=== PATIENT | male | born 1985 | race African-American/Black ===

== ENCOUNTER → 2024-12-03 | Outpatient (CLI) | payer BC, MEDICAID ==
[~2024-12-03] MED LIST: ARIP20TA4 PO; ATOR40TA52 PO; BACL10TA PO; CLOP75TA28 PO; FLUO40CA2 PO; GLIP5TAB21 PO; INSUINJ37 SC; MELO15TA29 PO; METF-370 PO; METH4TAB9 PO; RIZA10TA12 PO; TIRZ2.5I SC; TOPI25CA5 PO; TRAZ-228 PO
[2024-12-03 11:35] LABS: Hematocrit 43.9 % (41.0-53.0); Hemoglobin 14.1 g/dL (13.5-17.5); Mean Corpuscular Hemoglobin 27.0 pg (28.0-32.0); Mean Corpuscular Volume 84.1 fL (80.0-100.0); Nucleated Red Blood Cells % 0.0 %
[2024-12-03 11:46] LABS: INR 0.94 (0.9-1.15); Partial Thromboplastin Time 27.5 SEC (24.5-34.5); Prothrombin Time 10.0 sec (9.3-11.8)
[2024-12-03 12:10] LABS: Alkaline Phosphatase 77 U/L (46-116); Anion Gap 11 (5-15); Calcium 9.2 mg/dL (8.7-10.4); Carbon Dioxide 27 mmol/L (20-31); Chloride 106 mmol/L (98-107); Potassium 4.1 mmol/L (3.5-5.1); Sodium 144 mmol/L (136-145)
[2024-12-03 12:11] LABS: Total Protein 7.6 g/dL (5.7-8.2)
[2024-12-03 12:12] LABS: Albumin 4.4 g/dL (3.2-4.8); Bilirubin, Total 0.8 mg/dL (0.2-1.0)
[2024-12-03 12:34] LABS: Hepatitis B Surface Antigen Negative (Negative); Hepatitis C Antibody Negative (Negative)
[2024-12-03 14:45] LABS: Alanine Aminotransferase 62 U/L (7-40); BUN/Creatinine Ratio 7.4 (10.0-20.0); Blood Urea Nitrogen 7 mg/dL (9-23); Glucose 115 mg/dL (74-106)
[2024-12-04 10:07] LABS: Anti-Nuclear Antibody Direct Negative (Negative); Sjogren's Anti-SS-A Antibody <0.2 AI (0.0-0.9); Sjogren's Anti-SS-B Antibody <0.2 AI (0.0-0.9)
== END | disposition home or self-care (01) ==
LOC: LAB 09:39
PROVIDERS: ATTEND Psychiatry & Neurology Neurology
DX: G35.D Multiple sclerosis, unspecified (principal); Z79.899 Other long term (current) drug therapy
CPT/HCPCS: 36415; 80053; 82164; 82306; 82390; 82607; 82746; 84311; 84436; 84443; 85025; 85610; 85652; 85730; 86038; 86141; 86235; 86703; 86803; 87340

== ENCOUNTER 2024-12-05 07:04 | Outpatient (CLI) | payer BC, MEDICAID ==
[~2024-12-05] VITALS: Ht 182.9 cm; Wt 172.8 kg
[2024-12-05 10:00] VITALS: BP 128/81; PULSE 91; RESP 11; O2SAT 99
[2024-12-05 10:30] VITALS: BP 145/88; PULSE 88; RESP 12; O2SAT 98
--- NOTE | 2024-12-05 11:13 | DVH ---
XY LUMBAR PUNCTURE, HISTORY: LUMBAR PUNCTURE COMPARISON: None PROCEDURE: After obtaining written informed consent, the patient was placed left lateral decubitus on the interventional table. The patient's identity and the procedure were confirmed by the timeout pro cess. Under fluoroscopy, a midline approach to the L2-3 interlaminar space was selected and the overlying s kin anesthetized with several mL of 1% lidocaine. A 22G spinal needle was advanced under fluoroscopic vision into the spine however the needle was unable to reach the thecal sac. Fluoro Time: 2.4 minutes FINDINGS: Stored fluoroscopic images show the needle positioned with its tip not able to reach the th ecal sac. IMPRESSION: Unsuccessful lumbar puncture for CSF analysis, due to the needle too short to reach the thecal sac. A 5 inch spinal needle was the longest available in the facility. Recommend special order longer spina l needle for lumbar puncture.
== END 2024-12-05 17:00 | disposition home or self-care (01) ==
LOC: CATH 07:04
PROVIDERS: ATTEND Radiology Diagnostic Radiology
DX: G35.D Multiple sclerosis, unspecified (principal); I10 Essential (primary) hypertension; F32.A Depression, unspecified; E11.9 Type 2 diabetes mellitus without complications; G43.909 Migraine, unspecified, not intractable, without status migrainosus; Z86.73 Personal history of transient ischemic attack (TIA), and cerebral infarction without residual deficits; Z79.899 Other long term (current) drug therapy; Z98.890 Other specified postprocedural states
CPT/HCPCS: 62272; 99152

== ENCOUNTER 2024-12-07 08:37 | Emergency (ER) | payer BC, MEDICAID ==
[~2024-12-07] VITALS: Ht 182.9 cm; Wt 176.0 kg
[2024-12-07 08:38] VITALS: BP 187/85; PULSE 72; RESP 18; TEMP 97.6; O2SAT 96
--- NOTE | 2024-12-07 09:02 | ED.PDOC ---
Musculoskeletal HPI Comments This is a 38-year-old male, with a PMHx of Multiple Sclerosis (MS), Crohns Disease, CVA, and DM, who presents to the ED with a chief complaint of bilateral leg swelling for X3 days. Patient states this has happened before, with diagnosed MS, where he took a water pill to help with swelling. Patient reports he was taken off water pills in September. Patient has no further complaints at this time and otherwise denies further associated symptoms of dizziness, weakness, SOB, chest pain, headache, or fever. Chief Complaint: Lower Extremity Time Seen by MD: 09:52 Reviewed Notes: Nurses Notes, Medications, Allergies Allergies: Coded Allergies: Aspirin (Verified Allergy, Unknown, Swelling, Hives, 12/03/24) Uncoded Allergies: Green Beans (Allergy, Unknown, Throat and Tongue swelling, 12/03/24) Home Meds Reported Medications Baclofen (Baclofen) 10 Mg Tab, 10 MG PO TID PRN for MUSCLE SPASMS, MG 12/03/24 Trazodone Hcl (Trazodone Hcl) 100 Mg Tab, 100 MG PO HS for INSOMNIA, MG 12/03/24 Aripiprazole (Abilify) 20 Mg Tab, 10 MG PO DAILY for PSYCHOSIS, TAB 12/03/24 Tirzepatide (Mounjaro) 2.5 Mg/0.5 Ml Inj, 2.5 MG SC QWEEKLY for diabetes/weight loss, INJ 12/03/24 Insulin Glargine (Lantus Solostar) 100 Unit/Ml Inj, 30 UNIT SC DAILY for DIABE LEXIE, INJ 12/03/24 Topiramate (Topiramate) 25 Mg Cap, 25 MG PO DAILY for MIGRAINE HEADACHES for 30 Days, MG 12/03/24 Metformin Hydrochloride (Metformin Hcl) 500 Mg Tab, 500 MG PO BID for DIABETES for 30 Days, MG 12/03/24 Glipizide (Glipizide) 5 Mg Tab, 5 MG PO BID for DIABETES, MG 12/03/24 Fluoxetine HCl (Fluoxetine Hydrochloride) 40 Mg Cap, 40 MG PO DAILY, CAP 12/03/24 Atorvastatin Calcium (ATORVASTATIN CALCIUM) 40 Mg Tab, 1 TAB PO DAILY for HIGH CHOLESTEROL, #30 TAB 5 Refills 12/03/24 Meloxicam (Meloxicam) 15 Mg Tab, 1 TAB PO TIDP PRN for PAIN SCALE 1 THRU 6, #30 TAB 2 Refills 12/03/24 Rizatriptan Benzoate (Maxalt) 10 Mg Tab, 10 MG PO TIDP PRN for migraine headache, TAB 12/03/24 Clopidogrel Bisulfate (Plavix) 75 Mg Tab, 1 TAB PO DAILY, #90 TAB 1 Refill 12/03/24 Methylprednisolone (Methylprednisolone) 4 Mg Tab, 24 MG PO DAILY for Multiple Sclerosis, MG 12/03/24 Information Source: Patient Mode of Arrival: Ambulatory Location: Bilateral Extremity Location: Leg Timing: Days Severity: Moderate Onset of Symptoms: Spontaneous Symptoms: Swelling, Pain Associated signs and symptoms: Swelling Past Medical History PAST MEDICAL HISTORY: CVA, DM Past Medical History (Other): Multiple Sclerosis (MS), Crohns Disease Surgical History: Denies all surgeries Family History Family History: Reviewed,noncontributory to illness, No family hx of Cancer, No family hx of DM, No family hx of Heart darrel, No family hx of HTN, No family hx ofKidney darrel, No family hx of Liver darrel, No family hx of Lung darrel, No family hx of Stroke Social History Smoker: Non-Smoker Alcohol: Denies ETOH Use Drugs: Denies Drug Use Lives In: Home Constitutional: denies: chills, diaphoresis, fatigue, fever, malaise, sweats, weakness, others EENTM: denies: blurred vision, double vision, ear bleeding, ear discharge, ear drainage, ear pain, ear ringing, eye pain, eye redness, hearing loss, mouth pain, mouth swelling, nasal discharge, nose bleeding, nose congestion, nose pain, photophobia, tearing, throat pain, throat swelling, voice changes, others Respiratory: denies: cough, hemoptysis, orthopnea, SOB at rest, shortness of breath, SOB with excertion, stridor, wheezing, others Cardiovascular: denies: chest pain, dizzy spells, diaphoresis, Dyspnea on exertion, edema, irregular heart beat, left arm pain, lightheadedness, palpitations, PND, syncope, others Gastrointestinal: denies: abdomen distended, abdominal pain, blood streaked bowels, constipated, diarrhea, dysphagia, difficulty swallowing, hematemesis, melena, nausea, poor appetite, poor fluid intake, rectal bleeding, rectal pain, vomiting, others Genitourinary: denies: burning, dysuria, flank pain, frequency, hematuria, incontinence, penile discharge, penile sore, pain, testicle pain, testicle swelling, urgency, others Neurological: denies: dizziness, fainting, headache, left sided numbness, left sided weakness, numbness, paresthesia, pre-existing deficit, right sided numbness, right sided weakness, seizure, speech problems, tingling, tremors, weakness, others Musculoskeletal: reports: joint swelling; denies: back pain, gout, joint pain, muscle pain, muscle stiffness, neck pain, others Integumetry: denies: bruises, change in color, change in hair/nails, dryness, laceration, lesions, lumps, rash, wounds, others Allergic/Immunocompromised: denies: Difficulty Healing, Frequent Infections, Hives, Itching, others Hematologic/Lymphatic: denies: anemia, blood clots, easy bleeding, easy bruising, swollen glands, others Endocrine: denies: excessive hunger, excessive sweating, excessive thirst, excessive urination, flushing, intolerance to cold, intolerance to heat, unexplained weight gain, unexplained weight loss, others Psychiatric: denies: anxiety, bipolar disorder, depression, hopeless, panic disorder, schizophrenia, sleepless, suicidal, others All Other Systems: Reviewed and Negative Physical Exam General Appearance: Moderate Distress HEENT: Normal ENT Inspection, Pharynx Normal, TMs Normal Neck: Full Range of Motion, Non-Tender, Normal, Normal Inspection Respiratory: Chest Non-Tender, Lungs Clear, No Accessory Muscle Use, No Respira tory Distress, Normal Breath Sounds Cardiovascular: No Edema, No JVD, No Murmur, No Gallop, Normal Peripheral Pulses, Regular Rate/Rhythm Breast Exam: Deferred Gastrointestinal: No Organomegaly, Non Tender, No Pulsatile Mass, Normal Bowel Sounds, Soft Genitalia: Deferred Pelvic: Deferred Rectal: Deferred Extremities: Swelling (Bilateral lower extremity) Musculoskeletal : Apperance: Normal Neurologic: Alert, 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 Was a procedure done?: No Differential Diagnosis EXT Differential Diagnosis: Cellulitis, Fracture, Sprain, Arthritis X-Ray, Labs, Meds, VS Vital Signs Date Time Temp Pulse Resp B/P (MAP) Pulse Ox O2 Delivery O2 Flow Rate FiO2 12/07/24 08:38 97.6 72 18 187/85 96 97.6 Patient alert. Vitals stable. Came in because of leg swelling. Answering all questions. Ambulating. Patient has not been taking his Lasix. Saturation pristine on room air. Blood pressure elevated. Explained to the patient. Continue monitoring. Time of 1ST Reevaluation: 10:40 Reevaluation 1ST: Unchanged Patient Education/Counseling: Diagnosis, Treatment Family Education/Counseling: No Family Present Departure 1 Departure Time of Disposition: 17:21 Impression: Primary Impression: CHF (congestive heart failure) Qualified Codes: I50.43 - Acute on chronic combined systolic (congestive) and diastolic (congestive) heart failure Additional Impression: Hypertensive urgency Disposition: ADMITTED INPATIENT Admit to: Med Surg Condition: Guarded Critical Care Note Critical Care Time?: No Stability Stability form required: No Heart Score Heart Score: Heart Score Response (Comments) Value History N/A 0 EKG N/A 0 Age N/A 0 Risk Factors N/A 0 Troponin N/A 0 Total 0 I personally scribed for KIRSTIE RICARDO MD ([email or web address]) on 12/07/24 at 09:02. Electronically submitted by Jolynn Tirado ([email or web address]). I personally scribed for KIRSTIE RICARDO MD ([email or web address]) on 12/07/24 at 10:10. Electronically submitted by Jolynn Tirado ([email or web address]). KIRSTIE RICARDO MD Dec 07, 2024 09:02
== END 2024-12-07 10:06 | disposition left against medical advice (07) ==
LOC: ER 08:37
DX: I50.9 Heart failure, unspecified (principal); I16.0 Hypertensive urgency; E11.9 Type 2 diabetes mellitus without complications; Z79.899 Other long term (current) drug therapy; Z86.73 Personal history of transient ischemic attack (TIA), and cerebral infarction without residual deficits; Z79.84 Long term (current) use of oral hypoglycemic drugs; Z79.4 Long term (current) use of insulin; Z79.02 Long term (current) use of antithrombotics/antiplatelets; Z88.6 Allergy status to analgesic agent; Z79.85 Long-term (current) use of injectable non-insulin antidiabetic drugs; Z79.52 Long term (current) use of systemic steroids

== ENCOUNTER 2024-12-13 14:34 | Emergency (ER) | payer BC, MEDICAID ==
[~2024-12-13] VITALS: Ht 185.4 cm; Wt 172.0 kg
[2024-12-13 14:35] VITALS: BP 126/95; PULSE 94; RESP 18; TEMP 97; O2SAT 98
--- NOTE | 2024-12-13 15:49 | ED.PDOC ---
Back pain HPI HPI Comments 38 y.o male presents to the ED for a chief complaint of body pain x 2 days. Patient reports recent diagnose of MS, states he is having a flare up and is here for a dexamethasone injection for pain control as he has an appointment with vascular doctor on 12/15/24. Patient was seen here a couple days ago given lower extremity swelling however had Lasix prescribed and states swelling has gone down. He is also being followed by his PCP and internal medicine team for DVT workup. He denies any nausea, vomiting, chest pain, SOB, fever, chills. Chief Complaint: Body Pain Time Seen by MD: 15:23 Reviewed Notes: Nurses Notes, Medications, Allergies Allergies: Coded Allergies: Aspirin (Verified Allergy, Unknown, Swelling, Hives, 12/03/24) Uncoded Allergies: BEE STING (Allergy, Unknown, 12/13/24) Green Beans (Allergy, Unknown, Throat and Tongue swelling, 12/03/24) Home Meds Reported Medications Baclofen (Baclofen) 10 Mg Tab, 10 MG PO TID PRN for MUSCLE SPASMS, MG 12/03/24 Trazodone Hcl (Trazodone Hcl) 100 Mg Tab, 100 MG PO HS for INSOMNIA, MG 12/03/24 Aripiprazole (Abilify) 20 Mg Tab, 10 MG PO DAILY for PSYCHOSIS, TAB 12/03/24 Tirzepatide (Mounjaro) 2.5 Mg/0.5 Ml Inj, 2.5 MG SC QWEEKLY for diabetes/weight loss, INJ 12/03/24 Insulin Glargine (Lantus Solostar) 100 Unit/Ml Inj, 30 UNIT SC DAILY for DIABETES, INJ 12/03/24 Topiramate (Topiramate) 25 Mg Cap, 25 MG PO DAILY for MIGRAINE HEADACHES for 30 Days, MG 12/03/24 Metformin Hydrochloride (Metformin Hcl) 500 Mg Tab, 500 MG PO BID for DIABETES for 30 Days, MG 12/03/24 Glipizide (Glipizide) 5 Mg Tab, 5 MG PO BID for DIABETES, MG 12/03/24 Fluoxetine HCl (Fluoxetine Hydrochloride) 40 Mg Cap, 40 MG PO DAILY, CAP 12/03/24 Atorvastatin Calcium (ATORVASTATIN CALCIUM) 40 Mg Tab, 1 TAB PO DAILY for HIGH CHOLESTEROL, #30 TAB 5 Refills 12/03/24 Meloxicam (Meloxicam) 15 Mg Tab, 1 TAB PO TIDP PRN for PAIN SCALE 1 THRU 6, #30 TAB 2 Refills 12/03/24 Rizatriptan Benzoate (Maxalt) 10 Mg Tab, 10 MG PO TIDP PRN for migraine headac he, TAB 12/03/24 Clopidogrel Bisulfate (Plavix) 75 Mg Tab, 1 TAB PO DAILY, #90 TAB 1 Refill 12/03/24 Methylprednisolone (Methylprednisolone) 4 Mg Tab, 24 MG PO DAILY for Multiple Sclerosis, MG 12/03/24 Information Source: Patient Mode of Arrival: Ambulatory Timing: Days (2) Duration: Since onset Severity: Moderate Quality: Aching Onset: Other Circumstance: Other History of: Other Modifying Factors: Nothing Past Medical History PAST MEDICAL HISTORY: CVA, DM Past Medical History (Other): MS Surgical History: Denies all surgeries Family History Family History: Reviewed,noncontributory to illness, No family hx of Cancer, No family hx of DM, No family hx of Heart darrel, No family hx of HTN, No family hx ofKidney darrel, No family hx of Liver darrel, No family hx of Lung darrel, No family hx of Stroke Social History Smoker: Non-Smoker Alcohol: Denies ETOH Use Drugs: Denies Drug Use Lives In: Home Constitutional: denies: chills, diaphoresis, fatigue, fever, malaise, sweats, weakness, others EENTM: denies: blurred vision, double vision, ear bleeding, ear discharge, ear drainage, ear pain, ear ringing, eye pain, eye redness, hearing loss, mouth pain, mouth swelling, nasal discharge, nose bleeding, nose congestion, nose pain, photophobia, tearing, throat pain, throat swelling, voice changes, others Respiratory: denies: cough, hemoptysis, orthopnea, SOB at rest, shortness of breath, SOB with excertion, stridor, wheezing, others Cardiovascular: denies: chest pain, dizzy spells, diaphoresis, Dyspnea on exertion, edema, irregular heart beat, left arm pain, lightheadedness, palpitations, PND, syncope, others Gastrointestinal: denies: abdomen distended, abdominal pain, blood streaked bowels, constipated, diarrhea, dysphagia, difficulty swallowing, hematemesis, melena, nausea, poor appetite, poor fluid intake, rectal bleeding, rectal pain, vomiting, others Genitourinary: denies: burning, dysuria, flank pain, frequency, hematuria, incontinence, penile discharge, penile sore, pain, testicle pain, testicle swelling, urgency, others Neurological: denies: dizziness, fainting, headache, left sided numbness, left sided weakness, numbness, paresthesia, pre-existing deficit, right sided numbness, right sided weakness, seizure, speech problems, tingling, tremors, weakness, others Musculoskeletal: reports: muscle pain; denies: back pain, gout, joint pain, joint swelling, muscle stiffness, neck pain, others Integumetry: denies: bruises, change in color, change in hair/nails, dryness, laceration, lesions, lumps, rash, wounds, others Allergic/Immunocompromised: denies: Difficulty Healing, Frequent Infections, Hives, Itching, others Hematologic/Lymphatic: denies: anemia, blood clots, easy bleeding, easy brui sing, swollen glands, others Endocrine: denies: excessive hunger, excessive sweating, excessive thirst, ex cessive urination, flushing, intolerance to cold, intolerance to heat, unexplained weight gain, unexplained weight loss, others Psychiatric: denies: anxiety, bipolar disorder, depression, hopeless, panic disorder, schizophrenia, sleepless, suicidal, others All Other Systems: Reviewed and Negative Physical Exam General Appearance: Moderate Distress, Obese HEENT: Normal ENT Inspection, Pharynx Normal, TMs Normal Neck: Full Range of Motion, Non-Tender, Normal, Normal Inspection Respiratory: Chest Non-Tender, Lungs Clear, No Accessory Muscle Use, No Respiratory Distress, Normal Breath Sounds Cardiovascular: No Edema, No JVD, No Murmur, No Gallop, Normal Peripheral Pulses, Regular Rate/Rhythm Breast Exam: Deferred Gastrointestinal: No Organomegaly, Non Tender, No Pulsatile Mass, Normal Bowel Sounds, Soft Genitalia: Deferred Pelvic: Deferred Rectal: Deferred Extremities: No calf tenderness, Normal capillary refill, Normal range of motion, Non-tender, No pedal edema, Swelling (Bilateral lower extremity) Musculoskeletal : Apperance: Normal Neurologic: Alert, 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 Was a procedure done?: No Back Pain Differential Dx Differential Diagnosis: Musculoskeletal Pain, Other (MS flare up ) X-Ray, Labs, Meds, VS Vital Signs Date Time Temp Pulse Resp B/P (MAP) Pulse Ox O2 Delivery O2 Flow Rate FiO2 12/13/24 14:35 97.0 94 18 126/95 98 97.0 Patient alert. Came in because of a steroid injection. Bilateral lower extremity swelling. Vitals stable. History of multiple sclerosis. Answering questions. Explained to the patient he will be admitted for congestive heart failure. Continue monitoring. Time of 1ST Reevaluation: 15:44 Reevaluation 1ST: Unchanged Patient Education/Counseling: Diagnosis, Treatment Family Education/Counseling: No Family Present SEPSIS Sepsis Screen Date sepsis recognized/suspect: Dec 13, 2024 Time Sepsis recognized/suspect: 1437 Recent Procedure: No On Antibiotic Therapy: No Respiratory Rate >20: No Heart Rate >90: Yes Temp<36 C (96.8 F) or >38.3 C: No SBP <90 or MAP <65 mmHG: No New Acute Mental Status Change: No Is the patient on CPAP, BIPAP,: No Vital Signs Date Time Temp Pulse Resp B/P (MAP) Pulse Ox O2 Delivery O2 Flow Rate FiO2 12/13/24 14:35 97.0 94 18 126/95 98 97.0 Departure 1 Departure Time of Disposition: 16:22 Impression: Primary Impression: CHF (congestive heart failure) Qualified Codes: I50.43 - Acute on chronic combined systolic (congestive) and diastolic (congestive) heart failure Disposition: ADMITTED INPATIENT Admit to: Med Surg Condition: Guarded Critical Care Note Critical Care Time?: No Stability Stability form required: No I personally scribed for KIRSTIE RICARDO MD ([email or web address]) on 12/13/24 at 15:49. Electronically submitted by Shreya Munoz ([facility]). KIRSTIE RICARDO MD Dec 13, 2024 15:49
== END 2024-12-13 15:48 | disposition left against medical advice (07) ==
LOC: ER 14:34
DX: I50.9 Heart failure, unspecified (principal); E11.9 Type 2 diabetes mellitus without complications; Z79.899 Other long term (current) drug therapy; Z79.85 Long-term (current) use of injectable non-insulin antidiabetic drugs; Z91.030 Bee allergy status; Z86.73 Personal history of transient ischemic attack (TIA), and cerebral infarction without residual deficits; Z88.6 Allergy status to analgesic agent; Z79.84 Long term (current) use of oral hypoglycemic drugs; Z79.4 Long term (current) use of insulin; Z79.02 Long term (current) use of antithrombotics/antiplatelets; Z79.52 Long term (current) use of systemic steroids